=== PATIENT | male | born 1990 | race African-American/Black ===

== ENCOUNTER 2018-05-15 17:29 | Emergency (ER) | payer OTHER ==
[~2018-05-15] VITALS: Ht 175.3 cm; Wt 71.0 kg
[2018-05-15] MEDS ORDERED: SODIUM CHLORIDE 0.9% 1,000 ML IV ONE (19:17)
[2018-05-15 19:30] VITALS: BP 108/78
== END 2018-05-15 20:50 | disposition left against medical advice (07) ==
LOC: ER 17:29
DX: G92 Toxic encephalopathy (principal); R41.82 Altered mental status, unspecified; F12.929 Cannabis use, unspecified with intoxication, unspecified; F19.10 Other psychoactive substance abuse, uncomplicated; F32.9 Major depressive disorder, single episode, unspecified; R03.0 Elevated blood-pressure reading, without diagnosis of hypertension
CPT/HCPCS: 99283; J7030